=== PATIENT | male | born 1955 | race Caucasian/White ===

== ENCOUNTER 2023-08-25 15:56 | Emergency (ER) | payer MEDICARE ==
[~2023-08-25] VITALS: Ht 177.8 cm; Wt 77.2 kg
[2023-08-25 16:58] LABS: BILIRUBIN,URINE NEGATIVE (Neg); CLARITY,URINE CLOUDY (Clear); COLOR,URINE YELLOW (Yellow); GLUCOSE, URINE 250 mg/dl (Neg); KETONES,URINE NEGATIVE (Neg); LEUKOCYTE ESTERASE ,URINE NEGATIVE (Neg); NITRITES, URINE NEGATIVE (Neg); OCCULT BLOOD,URINE NEGATIVE (Neg); PH,URINE 7.5 (4.8-8.0); PROTEIN,URINE TRACE mg/dl (Neg); UROBILINOGEN,URINE 0.2 E.U/dL (0.2-1.0)
[2023-08-25 17:22] LABS: HYALINE CASTS 0-3 /LPF (NEGATIVE); UA COLLECTION TYPE CLN CATCH MIDSTREAM
[2023-08-25 17:23] LABS: MUCUS STRANDS FEW /LPF (Neg); RBC,URINE 0-2 /HPF (0-2); SQUAMOUS EPITHELIAL CELL,UR FEW /LPF (FEW); TRANSITIONAL EPI CELLS,URINE FEW /HPF; WBC,URINE 0-4 /HPF (0-4)
[2023-08-25 17:24] LABS: AMORPHOUS PHOSPHATES 4+; BACTERIA,URINE NONE SEEN /HPF (Neg)
[2023-08-25 21:44] LABS: BASOPHILS # (AUTO) 0.2 X10'3 (0-0.2); BASOPHILS % (AUTO) 0.8 % (0-1); EOSINOPHILS % (AUTO) 0.1 % (0-6); HEMATOCRIT 39.4 % (42.0-52.0); LYMPHOCYTES # (AUTO) 0.3 X10'3 (1.1-4.8); LYMPHOCYTES % (AUTO) 1.8 % (21-51); MEAN CORPUSCULAR HEMOGLOBIN 25.8 PG (27.0-31.0); MEAN CORPUSCULAR HGB CONC 32.9 g/dL (33.0-36.5); MEAN CORPUSCULAR VOLUME 78.3 FL (78-98); MEAN PLATELET VOLUME 7.2 FL (7.4-10.4); MONOCYTES # (AUTO) 0.5 X10'3 (0-0.9); NEUTROPHILS # (AUTO) 17.5 X10'3 (1.8-7.7); NEUTROPHILS % (AUTO) 94.3 % (42-75); PLATELET COUNT 311 X10'3 (140-440); RED BLOOD COUNT 5.03 X10'6 (4.70-6.10); RED CELL DISTRIBUTION WIDTH 14.6 % (11.5-14.5); WHITE BLOOD COUNT 18.6 X10'3 (4.5-11.0)
[2023-08-25 21:45] LABS: ALANINE AMINOTRANSFERASE 32 U/L (12-78); ALKALINE PHOSPHATASE 108 IU/L (46-116); ANION GAP 8 (8-16); ASPARTATE AMINO TRANSFERASE 22 U/L (10-37); BILIRUBIN,TOTAL 0.6 MG/DL (0.1-1.0); BLOOD UREA NITROGEN 18 MG/DL (7-18); BUN/CREATININE RATIO 16.8 (10.0-20.0); CALCIUM 9.5 MG/DL (8.5-10.1); CHLORIDE 95 MMOL/L (99-107); CREATININE 1.07 MG/DL (0.60-1.10); GLUCOSE 210 MG/DL (70-104); POTASSIUM 3.6 MMOL/L (3.5-5.1); SODIUM 132 MMOL/L (135-145); TOTAL CARBON DIOXIDE 28.9 MMOL/L (24-32); TOTAL PROTEIN 8.2 G/DL (6.4-8.2); eCRCL 69 ML/MIN; eGFR 69 ML/MIN
[2023-08-25 21:52] LABS: PRO BRAIN NATRIURETIC PEPTIDE 280 PG/ML (0-125)
[2023-08-25] MEDS ORDERED: iohexol 300mg/ml 100ml inj. ONE (22:24)
[2023-08-25 22:34] LABS: C-REACTIVE PROTEIN 15.74 MG/DL (0.0-0.5)
[2023-08-25] MEDS: normal saline 1000ML IV soln IVB ONE (22:34)
[2023-08-25] MEDS ORDERED: iohexol 350MG/ML 100ml bottle IV ONE (22:49)
[2023-08-25] MEDS ORDERED: heparin 10,000 units/1 ML INJ IV ONE (22:50)
[2023-08-25] MEDS: aspirin 325mg tablet PO ONE (23:14)
[2023-08-25] MEDS: dexamethasone sod phosphate 10mg/ml inj IV STA (23:14)
[2023-08-25] MEDS: CefTRIAXone/D5W-Rocephin 1gm 50 ML IV ONE (23:14)
[2023-08-25 23:15] LABS: FREE T4 (FREE THYROXINE) 1.19 NG/DL (0.73-1.40); THYROID STIMULATING HORMONE 1.64 ulU/ml (0.34-4.50)
[2023-08-25 23:36] LABS: BASOPHILS # (AUTO) 0.1 X10'3 (0-0.2); BASOPHILS % (AUTO) 0.4 % (0-1); EOSINOPHILS % (AUTO) 0 % (0-6); HEMATOCRIT 35.3 % (42.0-52.0); HEMOGLOBIN 11.7 g/dl (14.0-17.9); LYMPHOCYTES # (AUTO) 0.9 X10'3 (1.1-4.8); LYMPHOCYTES % (AUTO) 5.2 % (21-51); MEAN CORPUSCULAR HEMOGLOBIN 25.7 PG (27.0-31.0); MEAN CORPUSCULAR HGB CONC 33.2 g/dL (33.0-36.5); MEAN CORPUSCULAR VOLUME 77.4 FL (78-98); MEAN PLATELET VOLUME 6.7 FL (7.4-10.4); MONOCYTES # (AUTO) 0.9 X10'3 (0-0.9); MONOCYTES % (AUTO) 4.9 % (2-12); NEUTROPHILS # (AUTO) 15.7 X10'3 (1.8-7.7); NEUTROPHILS % (AUTO) 89.5 % (42-75); PLATELET COUNT 280 X10'3 (140-440); RED BLOOD COUNT 4.56 X10'6 (4.70-6.10); RED CELL DISTRIBUTION WIDTH 14.9 % (11.5-14.5); WHITE BLOOD COUNT 17.5 X10'3 (4.5-11.0)
[2023-08-25] MEDS: heparin 10,000 units/1 ML INJ IV ONE (23:36)
[2023-08-25] MEDS: heparin 25,000 UNIT/250ml bag 250 ML IV PRN (23:38)
[2023-08-25 23:45] LABS: APTT 32 SECONDS (22-32); INR 1.1 INR; PROTHROMBIN TIME 11.8 SECONDS (9.0-12.0)
[2023-08-26] MEDS: azithromycin/NS 500mg/250ml 250 ML IV ONE (00:17)
[2023-08-26] MEDS: vancomycin/NS 1 GM ADD-VANTAGE 250 ML IV ONE (01:26)
[2023-08-26 08:45] LABS: BASOPHILS % (AUTO) 0 % (0-1); EOSINOPHILS % (AUTO) 0 % (0-6); HEMATOCRIT 38.2 % (42.0-52.0); HEMOGLOBIN 12.4 g/dl (14.0-17.9); LYMPHOCYTES # (AUTO) 0.6 X10'3 (1.1-4.8); LYMPHOCYTES % (AUTO) 3.8 % (21-51); MEAN CORPUSCULAR HEMOGLOBIN 25.4 PG (27.0-31.0); MEAN CORPUSCULAR HGB CONC 32.4 g/dL (33.0-36.5); MEAN CORPUSCULAR VOLUME 78.2 FL (78-98); MONOCYTES # (AUTO) 0.2 X10'3 (0-0.9); MONOCYTES % (AUTO) 1.4 % (2-12); NEUTROPHILS # (AUTO) 14.6 X10'3 (1.8-7.7); NEUTROPHILS % (AUTO) 94.8 % (42-75); PLATELET COUNT 287 X10'3 (140-440); RED BLOOD COUNT 4.88 X10'6 (4.70-6.10); RED CELL DISTRIBUTION WIDTH 15.1 % (11.5-14.5); WHITE BLOOD COUNT 15.4 X10'3 (4.5-11.0)
[2023-08-26] MEDS: heparin 10,000 units/1 ML INJ IV PRN (13:12)
[2023-08-26] MEDS ORDERED: LEVO50CA4 PO (13:35)
[2023-08-26] MEDS ORDERED: LOSA100T58 PO (13:35)
[2023-08-26] MEDS ORDERED: LANTUS SOLOSTAR SUBCUT (13:35)
[2023-08-26] MEDS ORDERED: ATOR-2 PO (13:35)
[2023-08-26] MEDS ORDERED: METO-395 PO (13:35)
[2023-08-26] MEDS ORDERED: GLIP5TAB23 PO (13:35)
[2023-08-26] MEDS ORDERED: acetaminophen/codeine 120mg/12mg per 5ml UD cup PO ONE (14:50)
[2023-08-26] MEDS: guaiFENesin 200mg/20mg codeine phos 10ml UD oral syrup PO ONE ×2 (15:23→22:06)
[2023-08-26] MEDS: normal saline 1000ML IV soln IVB ONE (19:45)
[2023-08-26] MEDS: piperacillin/tazo 3.375gm/50ml 50 ML IV SCH (19:45)
[2023-08-26] MEDS: vancomycin/NS 1 GM ADD-VANTAGE 250 ML X 1 DOSE IV ONE (19:50)
[2023-08-26] MEDS: dexamethasone sod phosphate 10mg/ml inj IV STA (21:20)
[2023-08-27 00:15] VITALS: BP 154/91; PULSE 96; RESP 16; O2SAT 96
[2023-08-27 01:02] VITALS: TEMP 98.3
== END 2023-08-27 01:07 | disposition short-term general hospital (02) ==
LOC: ER 15:57
DX: A41.9 Sepsis, unspecified organism (principal); R50.9 Fever, unspecified; R05.9 Cough, unspecified; J02.9 Acute pharyngitis, unspecified; R79.89 Other specified abnormal findings of blood chemistry; E78.00 Pure hypercholesterolemia, unspecified; I10 Essential (primary) hypertension; E11.9 Type 2 diabetes mellitus without complications; E07.9 Disorder of thyroid, unspecified; Z88.8 Allergy status to other drugs, medicaments and biological substances
CPT/HCPCS: 36415; 70491; 71045; 71275; 74177; 80053; 81001; 83605; 83880; 84145; 84439; 84443; 84484; 85025; 85610; 85651; 85730; 86140; 87040; 93005; 96365; 96366; 96368; 96375; 96376; 99285; J0456; J0696; J1100; J1644; J2543; J3370; J3490; J7030; Q9967; 93306; 96367